=== PATIENT | female | born 2005 | race Two or more races ===

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

== ENCOUNTER → 2025-01-03 | Emergency (ER) | payer MEDICAID ==
[~2025-01-03] VITALS: Ht 165.1 cm; Wt 52.3 kg
[2025-01-03 21:37] VITALS: BP 138/86; PULSE 86; RESP 16; TEMP 98.2; O2SAT 98
== END | disposition left against medical advice (07) ==
LOC: ER 21:35
DX: S09.8XXA Other specified injuries of head, initial encounter (principal); Z53.21 Procedure and treatment not carried out due to patient leaving prior to being seen by health care provider; X58.XXXA Exposure to other specified factors, initial encounter; Y93.89 Activity, other specified; Y92.89 Other specified places as the place of occurrence of the external cause; Y99.8 Other external cause status